=== PATIENT | male | born 1960 | race Caucasian/White ===

== ENCOUNTER 2020-08-22 14:51 | Emergency (ER) | payer BC, OTHER ==
[2020-08-22 15:02] VITALS: PULSE 57
[2020-08-22] MEDS ORDERED: solu-MEDROL 125 MG IV ONE (15:04)
[2020-08-22] MEDS ORDERED: solu-MEDROL 125 MG ONE (15:13)
--- NOTE | 2020-08-22 15:47 | ERPHSYRPT ---
- History of Present Illness Source: patient Exam Limitations: no limitations Patient Subjective Stated Complaint: pt here for honey bee sting to left arm an hour ago, Triage Nursing Assessment: pt has hives to trunk, hoarse, sorethorat abd sob, Physician History: 60 yo wm w nausea/rash/dysphagia/dyspnea after being stung by bee at work. Pt used co-worker's epi-pen which improved pt's condition. Pt states that he is doing much better. He also took 50mg po Benadryl before arrival. Timing/Duration: today (Before arrival) Severity: moderate Modifying Factors: Improves With: other (Epi/Benadryl) Associated Symptoms: nausea, shortness of breath, No vomiting, No abdominal pain, No heartburn, No diaphoresis, No cough, No chills, No chest pain, No fever, No headaches, No loss of appetite, No malaise, No rash, No syncope, No seizure, No weakness Allergies/Adverse Reactions: bee venom protein (honey bee) Allergy (Verified 08/22/20 15:02) Hx Influenza Vaccination/Date Given: No Hx Pneumococcal Vaccination/Date Given: No Immunizations Up to Date: Yes Travel Risk - International Travel Have you traveled outside of the country in past 3 weeks: No - Coronavirus Screening Are you exhibiting any of the following symptoms?: No Close contact with a COVID-19 positive Pt in past 14-21 Days: No - Vaccine Status 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: [employer] - Vaccination Dates Date of 2cond Vaccination (if applicable): july - Review of Systems Constitutional: No Symptoms Eyes: No Symptoms Ears, Nose, & Throat: No Symptoms Respiratory: No Symptoms, Dyspnea Cardiac: No Symptoms Abdominal/Gastrointestinal: No Symptoms, Nausea Genitourinary Symptoms: No Symptoms Musculoskeletal: No Symptoms Skin: No Symptoms, Rash Neurological: No Symptoms Psychological: No Symptoms Endocrine: No Symptoms Hematologic/Lymphatic: No Symptoms Immunological/Allergic: No Symptoms - Past Medical History Pertinent Past Medical History: No - Past Surgical History Past Surgical History: Yes Musculoskeletal: Amputation Other Surgical History: toes amputation - Social History Smoking Status: Never smoker Exposure to second hand smoke: No Drug Use: none Patient Lives Alone: No Significant Family History: no pertinent family hx - Nursing Vital Signs Nursing Vital Signs: Initial Vital Signs Temperature 97.8 F 08/22/20 14:57 Pulse Rate 57 L 08/22/20 14:57 Respiratory Rate 18 08/22/20 14:57 O2 Sat by Pulse Oximetry 98 08/22/20 14:57 Pain Scale Pain Intensity 2 - Physical Exam General Appearance: no apparent distress Eye Exam: PERRL/EOMI, eyes nml inspection Ears, Nose, Throat Exam: normal ENT inspection, pharynx normal, moist mucous membranes Neck Exam: normal inspection, non-tender, supple, full range of motion, No meni ngismus, No mass, No Brudzinski, No Kernig's Respiratory Exam: normal breath sounds, lungs clear, airway intact, No chest tenderness, No respiratory distress Cardiovascular Exam: regular rate/rhythm, normal heart sounds, normal peripheral pulses, No murmur Gastrointestinal/Abdomen Exam: soft, normal bowel sounds, No tenderness Back Exam: normal inspection, normal range of motion Extremity Exam: normal inspection, normal range of motion Neurologic Exam: alert, oriented x 3, cooperative, environmental health safety engineer II-XII nml as tested, normal mood/affect, nml cerebellar function, nml station & gait, sensation nml Skin Exam: rash (Blanching erythematous generalized rash improving per pt) Lymphatic Exam: No adenopathy SpO2 Interpretation: normal SpO2: 99 O2 Delivery: Room Air - Course Nursing assessment & vital signs reviewed: Yes Ordered Tests: Medication Summary Discontinued Medications Generic Name Dose Route Start Last Admin Trade Name Jamilq PRN Reason Stop Dose Admin Famotidine 40 mg 08/22/20 16:04 08/22/20 16:11 Pepcid 20 Mg Vial IV 08/22/20 16:05 40 mg HS STA Administration Famotidine Confirm 08/22/20 16:08 Pepcid 20 Mg Vial Administered 08/22/20 16:09 Dose 40 mg IV .STK-MED ONE Methylprednisolone Sodium Succinate 125 mg 08/22/20 15:04 08/22/20 15:14 Solu-Medrol 125 Mg IV 08/22/20 15:05 125 mg STAT ONE Administration Methylprednisolone Sodium Succinate Confirm 08/22/20 15:13 Solu-Medrol 125 Mg Administered 08/22/20 15:14 Dose 125 mg .ROUTE .STK-MED ONE - Progress Progress: improved Progress Note: 08/22/20 15:46 125mg IV Solumedrol w improvement 08/22/20 16:04 Pepcid 40mg IV 08/22/20 22:24 Pt w good airway during stay and without dysphagia/dyspnea/angioedema. Rash appeared to be blanching but still present, so prednisone 10mg bid x 3 days ordered. Counseled pt/family regarding: diagnosis, need for follow-up - Departure Departure Disposition: Home Clinical Impression: Allergic reaction, Bee sting allergy Condition: Stable Critical Care Time: No Referrals: ALIVIA LOCKHART [Primary Care Provider] - Instructions: Angioedema (DC), Anaphylaxis (DC), Insect Bites and Stings (DC) Additional Instructions: Take Benadryl 25mg every 6 hours as needed Prednisone 10mg twice a day for 3 days Return to ER for worsening rash/shortness of breath/trouble swallowing Epinephrine for allergic reaction Prescriptions: Prednisone 10 mg [Deltasone 10 mg] 10 mg PO BID 3 Days #6 tablet Epinephrine [Epipen] 0.3 mg IM DAILY PRN PRN #2 pens PRN Reason: Allergies
[2020-08-22] MEDS ORDERED: Pepcid 20 MG VIAL IV STA (16:04)
[2020-08-22] MEDS ORDERED: Pepcid 20 MG VIAL IV ONE (16:08)
[2020-08-22 16:32] VITALS: BP 129/67
[2020-08-22 22:26] VITALS: O2SAT 99
== END 2020-08-22 16:33 | disposition home or self-care (01) ==
LOC: ED 14:51
DX: T63.441A Toxic effect of venom of bees, accidental (unintentional), initial encounter (principal); T78.40XA Allergy, unspecified, initial encounter; Y92.9 Unspecified place or not applicable
CPT/HCPCS: 36000; 96374; 96375; 99284; J2930